=== PATIENT | male | born 1975 | race American Indian/Alaskan Native ===

== ENCOUNTER 2017-11-21 17:34 | Emergency (ER) | payer OTHER ==
[2017-11-21] MEDS ORDERED: MOTRIN PO ONE (20:16)
--- NOTE | 2017-11-21 20:16 | Emergency Department Report ---
ED ENT HPI - General Chief complaint: Earache Stated complaint: (L) EAR ACHE Time Seen by Provider: 11/21/17 19:23 Source: patient Mode of arrival: Ambulatory Limitations: No Limitations - History of Present Illness Initial comments: This is a 42-year-old male here complaining of left ear pain for a week. He denies any drainage or any injury to his left ear. He also is complaining of left lower second molar toothache. He does not have a dentist nor does he have a primary care doctor. He has a history of arm and knee surgery. Denies any nasal congestion or runny nose. Denies any fever or chills. Denies any chest pain, shortness of breath or sore throat. Pain is 8 out of 10 to his teeth and his left ear. [id number] pain medication he reports did not help. No alleviating or exacerbating factors. MD complaint: tooth pain, ear pain Onset/Timin -: week(s) Location: L ear, tooth # 1 - Second molar Severity: severe Severity scale (0 -10): 8 Quality: aching Consistency: constant Improves with: none Worsens with: none Context- Dental: history of dental caries, poor dental care Context- Ear: other (known) Associated Symptoms: toothache. denies: fever, cough, gum swelling, pain with swallowing, sore throat, tinnitus, hearing loss, discharge from ear, rhinorrhea - Related Data Previous Rx's Medication Instructions Recorded Last Taken Type Acetaminophen/Codeine [Tylenol 1 tab PO Q6H PRN #14 tab 11/21/17 Unknown Rx /Codeine # 3 tab] Amoxicillin [Amoxicillin TAB] 875 mg PO BID 10 Days #20 tablet 11/21/17 Unknown Rx Ibuprofen [Motrin] 600 mg PO Q8H PRN #12 tablet 11/21/17 Unknown Rx Neomy/Polymyx B/Hc (Otic) Soln 4 drops .ROUTE Q8H 7 Days #1 bottle 11/21/17 Unknown Rx [Cortisporin (Otic) Soln] Allergies Allergy/AdvReac Type Severity Reaction Status Date / Time No Known Allergies Allergy Unverified 11/21/17 17:36 ED Dental HPI - General Chief complaint: Earache Stated complaint: (L) EAR ACHE Time Seen by Provider: 11/21/17 19:23 Source: patient Mode of arrival: Ambulatory Limitations: No Limitations - Related Data Previous Rx's Medication Instructions Recorded Last Taken Type Acetaminophen/Codeine [Tylenol 1 tab PO Q6H PRN #14 tab 11/21/17 Unknown Rx /Codeine # 3 tab] Amoxicillin [Amoxicillin TAB] 875 mg PO BID 10 Days #20 tablet 11/21/17 Unknown Rx Ibuprofen [Motrin] 600 mg PO Q8H PRN #12 tablet 11/21/17 Unknown Rx Neomy/Polymyx B/Hc (Otic) Soln 4 drops .ROUTE Q8H 7 Days #1 bottle 11/21/17 Unknown Rx [Cortisporin (Otic) Soln] Allergies Allergy/AdvReac Type Severity Reaction Status Date / Time No Known Allergies Allergy Unverified 11/21/17 17:36 ED Review of Systems ROS: Stated complaint: (L) EAR ACHE Other details as noted in HPI Constitutional: denies: chills, fever Eyes: denies: eye pain, eye discharge, vision change ENT: ear pain, dental pain. denies: throat pain, epistaxis, congestion Respiratory: denies: cough, shortness of breath, SOB with exertion, SOB at rest , stridor, wheezing Cardiovascular: denies: chest pain, palpitations, edema, syncope Gastrointestinal: denies: nausea, vomiting Musculoskeletal: denies: back pain, joint swelling, arthralgia, myalgia Skin: denies: rash, lesions Neurological: denies: headache, weakness, vertigo ED Past Medical Hx - Past Medical History Previous Medical History?: No - Surgical History Past Surgical History?: Yes Additional Surgical History: knee, arm - Family History Family history: hypertension - Social History Smoking Status: Never Smoker Substance Use Type: None - Medications Home Medications: Home Medications Medication Instructions Recorded Confirmed Last Taken Type Acetaminophen/Codeine [Tylenol 1 tab PO Q6H PRN #14 tab 11/21/17 Unknown Rx /Codeine # 3 tab] Amoxicillin [Amoxicillin TAB] 875 mg PO BID 10 Days #20 tablet 11/21/17 Unknown Rx Ibuprofen [Motrin] 600 mg PO Q8H PRN #12 tablet 11/21/17 Unknown Rx Neomy/Polymyx B/Hc (Otic) Soln 4 drops .ROUTE Q8H 7 Days #1 bottle 11/21/17 Unknown Rx [Cortisporin (Otic) Soln] ED Physical Exam - General Limitations: No Limitations General appearance: alert, in no apparent distress - Head Head exam: Present: atraumatic, normocephalic, normal inspection - Eye Eye exam: Present: normal appearance, PERRL, EOMI Pupils: Present: normal accommodation - ENT ENT exam: Present: normal orophraynx, mucous membranes moist, other (no maxillary or frontal sinus tenderness.). Absent: normal exam, TM's normal bilaterally (bilateral TM congested without erythema), normal external ear exam (right EAC normal exam left EAC red, swollen and left tragus is tender to palpate) - Expanded ENT Exam Expanded Ear exam: Present: normal external inspection TM/Canal exam: Canal Tenderness: Left TM (red and swollen) Teeth exam: Present: dental caries, dental tenderness # (#18), gingival enlargement. Absent: normal inspection, fractured tooth # 1 - Dental Tenderness (tooth #18 with tenderness. No abscess or cellulitic area), Other (positive gingivitis) Throat exam: Positive: normal inspection - Neck Neck exam: Present: normal inspection, full ROM. Absent: tenderness, lymphadenopathy - Respiratory Respiratory exam: Present: normal lung sounds bilaterally. Absent: respiratory distress, chest wall tenderness - Cardiovascular Cardiovascular Exam: Present: regular rate, normal rhythm, normal heart sounds. Absent: systolic murmur, diastolic murmur - Extremities Exam Extremities exam: Present: normal inspection, full ROM, normal capillary refill , other (No cce. + 2 pulses in all extremities, no neurovascular compromise). Absent: tenderness, pedal edema, joint swelling, calf tenderness - Neurological Exam Neurological exam: Present: alert, oriented X3, normal gait - Psychiatric Psychiatric exam: Present: normal affect, normal mood - Skin Skin exam: Present: warm, dry, intact, normal color. Absent: rash ED Course Vital Signs 11/21/17 17:36 Temperature 98.7 F Pulse Rate 85 Respiratory 16 Rate Blood Pressure 148/88 O2 Sat by Pulse 98 Oximetry - Reevaluation(s) Reevaluation #1: 11/21/17 20:31 Given Motrin 800 mg emergency room for toothache and left ear pain with positive relief. ED Medical Decision Making - Medical Decision Making This is a 42-year-old male here report that he is having left earache and left lower toothache. Patient does not have a dentist and he's been taking pain medication which he said that is not helping and is here for treatment. I examined patient and physical exam found patient with left tooth #18 with caries and tenderness around tooth. No abscess or cellulitis. Noted. No fracture noticed. He should also with gingivitis oral exam is otherwise normal. Patient also found to have bilateral TM with congestion and left TM red , swollen with left tragus tender to palpate. Patient was given Motrin and emergency room which relieved his pain. I discussed the patient is diagnosis and treatment plan and I discussed that he needs to follow-up with primary care physician regarding is left ear infection and dentist regarding this toothache, gingivitis and dental caries and he voiced understanding. A/P Gingivitis-antibiotic and referral to dentist Dental caries-patient will be placed on amoxicillin and referred to dentist Toothache #18-Motrin 800 mg given oral relief of pain and will be placed on Motrin and Tylenol 3 Otitis externa left ear-pain has resolved. Corticosporin optic solution prescription. referred to primary care at [facility] as he does not have a primary care doctor Educated on oral care, medication, follow-up visit, diagnosis and he voiced understanding. Pt Discharged home in stable condition. His vital signs are stable and he is afebrile. Pain is controlled. Patient to follow-up at [facility] and [facility] dental clinic in 2-3 days and he voiced understanding. Patient discharged home with prescription for amoxicillin, Cortisporin Otic solution, ibuprofen and Tylenol 3. 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 ED Disposition Clinical Impression: Gingivitis, Dental caries, Tooth ache, Otalgia, left ear Otitis externa Qualifiers: Otitis externa type: unspecified type Chronicity: acute Laterality: left Qualified Code(s): H60.502 - Unspecified acute noninfective otitis externa, left ear Disposition: DC-01 TO HOME OR SELFCARE Is pt being admited?: No Does the pt Need Aspirin: No Condition: Stable Instructions: Otitis Externa (ED), Earache (ED), Dental Caries (ED), Toothache (ED), Gingivitis (ED) Additional Instructions: Please follow up with dentist and primary care doctor as discussed. Take Motrin for mild to moderate pain and please take this medication with food. Take Tylenol No. 3 for severe pain and please do not drive or operate heavy machinery while taking this medication. Take amoxicillin as prescribed. Please see floss twice daily Gargle Listerine mouthwash twice daily Prescriptions: Acetaminophen/Codeine [Tylenol /Codeine # 3 tab] 1 tab PO Q6H PRN #14 tab PRN Reason: moderate to severe pain Amoxicillin [Amoxicillin TAB] 875 mg PO BID 10 Days #20 tablet Ibuprofen [Motrin] 600 mg PO Q8H PRN #12 tablet PRN Reason: Pain Neomy/Polymyx B/Hc (Otic) Soln [Cortisporin (Otic) Soln] 4 drops .ROUTE Q8H 7 Days #1 bottle Referrals: [facility] [Outside] - 3-5 Days [facility] [Outside] - 3-5 Days Forms: Work/School Release Form(ED)
[2017-11-21 20:58] VITALS: BP 139/72
== END 2017-11-21 20:45 | disposition home or self-care (01) ==
LOC: ED 17:34
DX: K02.9 Dental caries, unspecified (principal); H60.502 Unspecified acute noninfective otitis externa, left ear; K05.00 Acute gingivitis, plaque induced
CPT/HCPCS: 99282

== ENCOUNTER 2019-12-31 20:41 | Inpatient (IN) | payer OTHER ==
[2019-12-31] MEDS ORDERED: ASPIRIN 325 MG TAB PO ONE (21:04)
--- NOTE | 2019-12-31 21:21 | Emergency Department Report ---
ED Chest Pain HPI - General Chief Complaint: Chest Pain Stated Complaint: CHEST PAIN Time Seen by Provider: 12/31/19 21:21 Source: patient, RN notes reviewed Mode of arrival: Ambulatory Limitations: No Limitations - History of Present Illness Initial Comments: The patient was evaluated in the emergency department for symptoms described in the history of present illness. He/she was evaluated in the context of the global COVID-19 pandemic, which necessitated consideration that the patient might be at risk for infection with the virus that causes COVID-19. Institutional protocols and algorithms that pertain to the evaluation of patients at risk for COVID-19 are in a state of rapid change based on information released by regulatory bodies including the CDC and federal and state organizations. These policies and algorithms were followed during the patient's care in the emergency department. Please note that these policies, procedures and recommendations changed on a rapid basis. Patient is a pleasant, calm and cooperative 44-year-old gentleman who is not known to myself previously. He does not have a primary care doctor and he denies chronic medical conditions. He presents to the ER with a complaint of 3 days of nausea and vomiting, associated nonradiating chest pain, mild shortness of breath, without diaphoresis. Nausea and vomiting started first. 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 He has some muscle cramps, and dark-colored urine. He denies DVT, pulmonary embolism risk factors. Nausea and vomiting intermittent. Chest pain is central and left-sided, and intermittent. Patient is thirsty and asking to drink at this time. Nausea and vomiting do not have exacerbating or relieving factors. Chest pain does not have exacerbating or relieving factors. MD Complaint: chest pain -: Gradual, days(s) Onset: during rest, during exertion Pain Location: substernal, left chest, right chest Pain Radiation: none Quality: aching Consistency: intermittent Improves With: other Worsens With: other re: nausea, vomting, dyspnea Aspirin use within the Past 7 Days: (1) Yes - Related Data On Oral Contraceptives: No Previous Rx's Medication Instructions Recorded Last Taken Type Acetaminophen/Codeine [Tylenol 1 tab PO Q6H PRN #14 tab 11/21/17 Unknown Rx /Codeine # 3 tab] Amoxicillin [Amoxicillin TAB] 875 mg PO BID 10 Days #20 tablet 11/21/17 Unknown Rx Ibuprofen [Motrin] 600 mg PO Q8H PRN #12 tablet 11/21/17 Unknown Rx Neomy/Polymyx B/Hc (Otic) Soln 4 drops .ROUTE Q8H 7 Days #1 bottle 11/21/17 Unknown Rx [Cortisporin (Otic) Soln] Allergies Allergy/AdvReac Type Severity Reaction Status Date / Time No Known Allergies Allergy Verified 12/31/19 21:21 Heart Score - HEART Score History: Moderately suspicious EKG: Non-specific Age: 45-65 Risk factors: No known risk factors Troponin: < normal limit HEART Score: 3 - Critical Actions Critical Actions: 0-3 pts:0.9-1.7%risk of adverse cardiac event.Candidate for discharge ED Review of Systems ROS: Stated complaint: CHEST PAIN Other details as noted in HPI Constitutional: malaise, weakness. denies: fever Eyes: denies: eye discharge ENT: denies: epistaxis Respiratory: shortness of breath. denies: cough Cardiovascular: chest pain Gastrointestinal: nausea, vomiting. denies: constipation, hematemesis, melena, hematochezia Genitourinary: other. denies: urgency, dysuria, testicular pain Musculoskeletal: arthralgia, myalgia Neurological: weakness Psychiatric: anxiety Hematological/Lymphatic: denies: easy bleeding ED Past Medical Hx - Past Medical History Previous Medical History?: No - Surgical History Past Surgical History?: Yes Additional Surgical History: knee, arm - Social History Smoking Status: Never Smoker Substance Use Type: None - Medications Home Medications: Home Medications Medication Instructions Recorded Confirmed Last Taken Type Acetaminophen/Codeine [Tylenol 1 tab PO Q6H PRN #14 tab 11/21/17 Unknown Rx /Codeine # 3 tab] Amoxicillin [Amoxicillin TAB] 875 mg PO BID 10 Days #20 tablet 11/21/17 Unknown Rx Ibuprofen [Motrin] 600 mg PO Q8H PRN #12 tablet 11/21/17 Unknown Rx Neomy/Polymyx B/Hc (Otic) Soln 4 drops .ROUTE Q8H 7 Days #1 bottle 11/21/17 Unknown Rx [Cortisporin (Otic) Soln] ED Physical Exam - General Limitations: No Limitations General appearance: alert, anxious - Head Head exam: Present: atraumatic, normocephalic - Eye Eye exam: Present: normal appearance, EOMI. Absent: nystagmus - ENT ENT exam: Present: normal exam, normal orophraynx, mucous membranes moist, normal external ear exam - Neck Neck exam: Present: normal inspection, full ROM. Absent: tenderness, meningismus - Respiratory Respiratory exam: Present: normal lung sounds bilaterally. Absent: respiratory distress, rales, rhonchi, stridor - Cardiovascular Cardiovascular Exam: Present: regular rate, normal rhythm, normal heart sounds. Absent: bradycardia, tachycardia, irregular rhythm, systolic murmur, diastolic murmur, rubs, gallop - GI/Abdominal GI/Abdominal exam: Present: soft. Absent: distended, tenderness, guarding, rebound, rigid, pulsatile mass - Rectal Rectal exam: Present: deferred - Extremities Exam Extremities exam: Present: normal inspection, full ROM, other (2+ pulses noted in the bilateral upper and lower extremities. There is no palpable cord. negative Homans sign. Muscular compartments are soft. The pelvis is stable.). Absent: pedal edema, calf tenderness - Back Exam Back exam: Present: normal inspection, full ROM. Absent: tenderness, CVA tenderness (R), CVA tenderness (L), paraspinal tenderness, vertebral tenderness - Neurological Exam Neurological exam: Present: alert, normal gait, other (No facial droop. Tongue midline. Extraocular movements intact bilaterally. Facial sensation intact to light touch in V1, V2, V3 distribution bilaterally. 5 and a 5 strength in 4 extremities. Sensation intact to light touch in 4 extremities.). Absent: motor sensory deficit - Psychiatric Psychiatric exam: Present: anxious - Skin Skin exam: Present: warm, dry, intact, normal color. Absent: rash ED Course Vital Signs 12/31/19 12/31/19 20:46 21:28 Temperature 98.1 F Pulse Rate 95 H Respiratory 18 16 Rate Blood Pressure 149/97 O2 Sat by Pulse 96 Oximetry - Reevaluation(s) Reevaluation #1: 12/31/19 22:21 Suspect that direct hyperbilirubinemia, hypomagnesemia, transaminitis all secondary to rhabdomyolysis. CK level pending. Reevaluation #2: 12/31/19 22:22 Creatinine kinase almost 15,000. I suspect that the patient developed rhabdomyolysis, which in turn caused renal insufficiency, which in turn caused nausea and vomiting, which in turn led to presumed erosive gastritis/esophagitis, leading to patient's chest pain. PORFIRIO score - Porfirio Score Age > 65: (0) No Aspirin use within the Past 7 Days: (1) Yes 3 or more CAD Risk Factors: (0) No 2 or more Angina events in past 24 hrs: (0) No Known CAD with more than 50% Stenosis: (0) No Elevated Cardiac Markers: (0) No ST Deviation Greater than 0.5mm: (0) No PORFIRIO Score: 1 ED Medical Decision Making - Lab Data Result diagrams: 12/31/19 21:07 12/31/19 21:07 Vital Signs 12/31/19 12/31/19 20:46 21:28 Temperature 98.1 F Pulse Rate 95 H Respiratory 18 16 Rate Blood Pressure 149/97 O2 Sat by Pulse 96 Oximetry Lab Results 12/31/19 12/31/19 Range/Units 21:07 21:07 WBC 14.2 H (4.5-11.0) K/mm3 RBC 5.91 H (3.65-5.03) M/mm3 Hgb 15.9 H (11.8-15.2) gm/dl Hct 48.1 H (35.5-45.6) % MCV 81 L (84-94) fl MCH 27 L (28-32) pg MCHC 33 (32-34) % RDW 14.8 (13.2-15.2) % Plt Count 274 (140-440) K/mm3 Lymph % (Auto) 12.9 L (13.4-35.0) % [place] % (Auto) 4.1 (0.0-7.3) % Eos % (Auto) 0.0 (0.0-4.3) % Baso % (Auto) 0.5 (0.0-1.8) % Lymph # 1.8 (1.2-5.4) K/mm3 [place] # 0.6 (0.0-0.8) K/mm3 Eos # 0.0 (0.0-0.4) K/mm3 Baso # 0.1 (0.0-0.1) K/mm3 Seg Neutrophils % 82.5 H (40.0-70.0) % Seg Neutrophils # 11.7 H (1.8-7.7) K/mm3 Sodium 126 L (137-145) mmol/L Potassium 4.7 (3.6-5.0) mmol/L Chloride 83.3 L (98-107) mmol/L Carbon Dioxide 19 L (22-30) mmol/L Anion Gap 28 mmol/L BUN 63 H (9-20) mg/dL Creatinine 3.4 H (0.8-1.3) mg/dL Estimated GFR 24 ml/min BUN/Creatinine Ratio 19 % Glucose 117 H (75-100) mg/dL Calcium 10.0 (8.4-10.2) mg/dL Troponin T < 0.010 (0.00-0.029) ng/mL - EKG Data -: EKG Interpreted by Nv EKG shows normal: sinus rhythm Rate: normal - EKG Data When compared to previous EKG there are: previous EKG unavailable 12/31/19 22:14 Sinus rhythm, 83 bpm, normal axis, intervals within normal limits, high left ventricular voltage, hyperacute T waves, abnormal EKG, not a STEMI. - Radiology Data Radiology results: report reviewed, image reviewed Print Report Referring Physician: EDVIN KAUR Patient Name: MARS LU Date of : 1975 Sex: Male Report Date: 2019-12-31 Report Status: [place] [address] XRay Report Signed Patient: MARS LU MR#: [id number] : 1975 Acct:[id number] Age/Sex: 44 / M ADM Date: 12/31/19 Loc: ED Attending Dr: Ordering Physician: EDVIN KAUR MD Date of Service: 12/31/19 Procedure(s): XR chest routine 2V Accession Number(s): [id number] cc: EDVIN KAUR MD Fluoro Time In Minutes: CHEST 2 VIEWS INDICATION / CLINICAL INFORMATION: MAIN. Chest pain COMPARISON: None available. FINDINGS: SUPPORT DEVICES: None. HEART / MEDIASTINUM: No significant abnormality. LUNGS / PLEURA: No significant pulmonary or pleural abnormality. No pneumothorax. ADDITIONAL FINDINGS: No significant additional findings. IMPRESSION: 1. No acute findings. Signer Name: Duane Winters MD Signed: 12/31/2019 9:40 PM Workstation Name: [id number] Transcribed By: Dictated By: DUANE WINTERS Electronically Authenticated By: DUANE WINTERS Signed Date/Time: 12/31/192139 DD/ 38 TD/TT: - Medical Decision Making Differential diagnosis, including but not limited to: Azotemia, uremia, renal insufficiency, rhabdomyolysis, GERD, gastritis, hiatal hernia, pneumonia, coronary artery disease Assessment and plan: 44-year-old gentleman, who is not currently tachycardic, tachypneic or hypoxic, who endorses no DVT or pulmonary embolism risk factors, low risk by Wells criteria, who is PERC negative, 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 Found to have transaminitis, hypomagnesemia, leukocytosis which is likely a stress reaction, soft benign abdomen, renal insufficiency, creatinine kinase pending at this time. Highly suspicious for rhabdomyolysis. IV fluids ordered, supportive care ordered. He is also found to have hyponatremia, likely hypovolemic hyponatremia, metabolic acidosis likely sec ondary to nausea, vomiting, dehydration, and renal insufficiency. We have recommended admission to the medical service for supportive care and the aforementioned findings. Discussed this plan of care with the patient who verbalized understanding, and is amenable to this plan of care. Hospital physician, Dr. Tala Carrera to admit ck pending at this time Critical care attestation.: If time is entered above; I have spent that time in minutes in the direct care of this critically ill patient, excluding procedure time. ED Disposition Clinical Impression: TORIE (acute kidney injury), Hyponatremia, Metabolic acidosis, Chest pain, H ypermagnesemia, Transaminitis, Rhabdomyolysis Disposition: OP ADMIT IP TO THIS HOSP Is pt being admited?: Yes Does the pt Need Aspirin: No Condition: Serious Instructions: Chest Pain (ED) Referrals: PRIMARY CARE,MD [Primary Care Provider] - 3-5 Days
[2019-12-31] MEDS ORDERED: SUCRALFATE 1 GM TAB PO ONE (21:33)
[2019-12-31] MEDS ORDERED: FAMOTIDINE 20 MG TAB PO ONE (21:33)
[2019-12-31] MEDS ORDERED: METOCLOPRAMIDE 10 MG TAB PO ONE (21:33)
[2019-12-31 21:36] LABS: Basophils # (Auto) 0.1 K/mm3 (0.0-0.1); Basophils % (Auto) 0.5 % (0.0-1.8); Hematocrit 48.1 % (35.5-45.6); Hemoglobin 15.9 gm/dl (11.8-15.2); Lymphocytes # (Auto) 1.8 K/mm3 (1.2-5.4); Lymphocytes % (Auto) 12.9 % (13.4-35.0); Mean Corpuscular HGB Conc 33 % (32-34); Mean Corpuscular Volume 81 fl (84-94); Monocytes # (Auto) 0.6 K/mm3 (0.0-0.8); Monocytes % (Auto) 4.1 % (0.0-7.3); Platelet Count 274 K/mm3 (140-440); Red Blood Count 5.91 M/mm3 (3.65-5.03); Red Cell Distribution Width 14.8 % (13.2-15.2)
--- NOTE | 2019-12-31 21:45 | XRay Report ---
CHEST 2 VIEWS INDICATION / CLINICAL INFORMATION: MAIN. Chest pain COMPARISON: None available. FINDINGS: SUPPORT DEVICES: None. HEART / MEDIASTINUM: No significant abnormality. LUNGS / PLEURA: No significant pulmonary or pleural abnormality. No pneumothorax. ADDITIONAL FINDINGS: No significant additional findings. IMPRESSION: 1. No acute findings. Signer Name: Duane Rm MD Signed: 12/31/2019 9:40 PM Workstation Name: [id number]
[2019-12-31 21:54] LABS: BUN/Creatinine Ratio 19; Blood Urea Nitrogen 63 mg/dL (9-20); Hemolysis Index 27
[2019-12-31] MEDS ORDERED: LACTATED RINGERS 1,000 ML IV ONE (21:56)
[2019-12-31 22:04] LABS: Bilirubin,Direct 0.2 mg/dL (0-0.2)
[2019-12-31] MEDS ORDERED: SODIUM BICARB 8.4% 50 MEQ/50 ML SYRINGE IV ONE ×2 (22:21→22:42)
[2019-12-31 22:43] LABS: Osmolality,Urine 573 Mosm/kg
[2019-12-31 22:47] LABS: Bacteria,Urine 1+ /HPF (Negative); Bilirubin,Urine NEG (Negative); Blood,Urine MOD (Negative); Color,Urine Yellow (Yellow); Mucus,Urine FEW /HPF; Urobilinogen,Urine < 2.0 mg/dL (<2.0)
[2019-12-31 22:52] LABS: Amphetamine Screen,Urine PRESUMPTIVE POSITIVE; Benzodiazepines Screen,Urine PRESUMPTIVE NEGATIVE; Cannabinoid Screen,Urine PRESUMPTIVE POSITIVE; Cocaine Screen,Urine PRESUMPTIVE NEGATIVE; Methadone Screen,Urine PRESUMPTIVE NEGATIVE; Opiate Screen,Urine PRESUMPTIVE NEGATIVE
[2019-12-31] MEDS ORDERED: ONDANSETRON 4 MG/2 ML INJ IV PRN (22:54)
[2019-12-31] MEDS ORDERED: ACETAMINOPHEN 325 MG TAB PO PRN (22:54)
[2019-12-31] MEDS ORDERED: NITROGLYCERIN 0.4 MG TAB SUBL SL PRN (23:04)
[2019-12-31] MEDS: HEPARIN 5,000 UNIT/1 ML VIAL SUB-Q SCH (23:04)
[2019-12-31] MEDS ORDERED: MORPHINE 2 MG/1 ML INJ IV PRN (23:05)
[2019-12-31 23:27] LABS: Creatinine,Urine 351.4 mg/dL (0.1-20.0)
[2020-01-01] MEDS: SODIUM BICARBONATE 150 MEQ in DEXTROSE 5% IN WATER 1,000 ML IV SCH ×2 (00:45→15:05)
[2020-01-01 02:50] LABS: Creatine Kinase MB 23.2 ng/mL (0.0-4.0)
--- NOTE | 2020-01-01 06:20 | History and Physical Report ---
History of Present Illness Date of examination: 12/31/19 Date of admission: 12/31/19 22:18 Chief complaint: Nausea and Vomiting and Chest Pain History of present illness: 44 year old male who presented with nausea and vomiting after working in a hot sun. Patient also complained of non radiating intermittent retrosternal chest pain , mailase , bodyache but no fever, chills or dizziness and has been drinking lots of water and noticed dark colored urine Past History Past Medical History: diabetes, DVT, hypertension, renal failure, other Past Surgical History: No surgical history Social history: smoking, other (USES DRUGS LIKE MARIJUANA, AMPHETAMIN) Family history: no significant family history Medications and Allergies Allergies Allergy/AdvReac Type Severity Reaction Status Date / Time No Known Allergies Allergy Verified 12/31/19 21:21 Home Medications Medication Instructions Recorded Confirmed Last Taken Type No Known Home Medications [No 12/31/19 12/31/19 Unknown History Reported Home Medications] Active Meds: Active Medications Acetaminophen (Tylenol) 650 mg PO Q4H PRN PRN Reason: Fever >101 Aspirin (Aspirin) 325 mg PO QDAY [facility] Heparin Sodium (Porcine) (Heparin) 5,000 unit SUB-Q Q12HR [facility] Last Admin: 12/31/19 23:04 Dose: 5,000 unit Documented by: Sodium Bicarbonate 150 meq/ (Dextrose) 1,150 mls @ 75 mls/hr IV DIRECT [facility] Last Admin: 01/01/20 00:45 Dose: 75 mls/hr Documented by: Morphine Sulfate (Morphine) 2 mg IV Q3H PRN PRN Reason: Pain, Moderate (4-6) Nitroglycerin (Nitrostat) 0.4 mg SL .Q5MIN PRN PRN Reason: Chest Pain Ondansetron HCl (Zofran) 4 mg IV Q8H PRN PRN Reason: Nausea And Vomiting Review of Systems Constitutional: weakness, malaise, no fever, no chills, no sweats Eyes: bilateral: other (NO BILATERAL EYE SYMPTOM) Cardiovascular: chest pain, no lightheadedness, no high blood pressure Respiratory: no cough, no hemoptysis, no shortness of breath, no dyspnea on exertion, no congestion Gastrointestinal: nausea, vomiting, no abdominal pain, no diarrhea, no constipation, no change in bowel habits, no hematemesis, no hematochezia, no jaundice Genitourinary Male: other (DARK COLORED URINE), no dysuria, no hematuria, no flank pain, no discharge, no urinary frequency, no urinary hesitancy, no noc turia, no erectile dysfunction Rectal: no pain Musculoskeletal: no neck stiffness, no neck pain, no low back pain, no leg numbness/tingling Integumentary: no rash, no pruritis, no redness, no sores, no jaundice, no darkening of skin, no depigmentation, no acne, no brittle nails, no striae, no hirsutism Neurological: no head injury, no paralysis, no weakness, no parathesias, no numbness, no tingling, no seizures, no syncope, no tremors, no headaches, no migraines, no convulsions, no aphasia, no change in speech, no change in mentation, no confusion Psychiatric: no memory loss, no sleep disturbances, no insomnia, no hypersomnia, no change in appetite, no change in libido, no depression, no hopelessness, no anhedonia, no difficulties concentrating, no confusion Endocrine: polydipsia, no cold intolerance, no heat intolerance, no polyuria, no nocturia, no flushing Hematologic/Lymphatic: no easy bruising, no easy bleeding, no lymphadenopathy, no lymphedema Allergic/Immunologic: no persistent infections, no anaphylaxis Exam - Constitutional Vitals: Temp Pulse Resp BP Pulse Ox 98.4 F 72 18 118/70 97 01/01/20 05:14 01/01/20 05:14 01/01/20 05:14 01/01/20 05:14 01/01/20 05:14 General appearance: Present: mild distress - EENT Eyes: Present: PERRL, EOM intact ENT: hearing intact, clear oral mucosa - Neck Neck: Present: supple, normal ROM. Absent: carotid bruits - Respiratory Respiratory effort: normal - Cardiovascular Rhythm: regular Heart Sounds: Present: S1 & S2. Absent: gallop, systolic murmur, diastolic murmur - Extremities Extremities: no ischemia, No edema Peripheral Pulses: within normal limits - Abdominal General gastrointestinal: Present: soft, non-tender, non-distended. Absent: tender, distended, hepatomegaly, splenomegaly Male genitourinary: Present: deferred - Rectal Rectal Exam: deferred - Integumentary Integumentary: Present: clear, warm, dry. Absent: jaundice, rash - Musculoskeletal Musculoskeletal: strength equal bilaterally - Psychiatric Psychiatric: appropriate mood/affect HEART Score - HEART Score EKG: Non-specific Age: 45-65 Risk factors: No known risk factors Troponin: Troponin T < 0.010 ng/mL (0.00-0.029) 01/01/20 02:04 Troponin: < normal limit - Critical Actions Critical Actions: 0-3 pts:0.9-1.7%risk of adverse cardiac event.Candidate for discharge Results - Labs CBC & Chem 7: 12/31/19 21:07 12/31/19 21:07 Labs: Laboratory Last Values WBC 14.2 K/mm3 (4.5-11.0) H 12/31/19 21:07 RBC 5.91 M/mm3 (3.65-5.03) H 12/31/19 21:07 Hgb 15.9 gm/dl (11.8-15.2) H 12/31/19 21:07 Hct 48.1 % (35.5-45.6) H 12/31/19 21:07 MCV 81 fl (84-94) L 12/31/19 21:07 MCH 27 pg (28-32) L 12/31/19 21:07 MCHC 33 % (32-34) 12/31/19 21:07 RDW 14.8 % (13.2-15.2) 12/31/19 21:07 Plt Count 274 K/mm3 (140-440) 12/31/19 21:07 Lymph % (Auto) 12.9 % (13.4-35.0) L 12/31/19 21:07 [place] % (Auto) 4.1 % (0.0-7.3) 12/31/19 21:07 Eos % (Auto) 0.0 % (0.0-4.3) 12/31/19 21:07 Baso % (Auto) 0.5 % (0.0-1.8) 12/31/19 21:07 Lymph # 1.8 K/mm3 (1.2-5.4) 12/31/19 21:07 [place] # 0.6 K/mm3 (0.0-0.8) 12/31/19 21:07 Eos # 0.0 K/mm3 (0.0-0.4) 12/31/19 21:07 Baso # 0.1 K/mm3 (0.0-0.1) 12/31/19 21:07 Seg Neutrophils % 82.5 % (40.0-70.0) H 12/31/19 21:07 Seg Neutrophils # 11.7 K/mm3 (1.8-7.7) H 12/31/19 21:07 Sodium 126 mmol/L (137-145) L 12/31/19 21:07 Potassium 4.7 mmol/L (3.6-5.0) 12/31/19 21:07 Chloride 83.3 mmol/L (98-107) L 12/31/19 21:07 Carbon Dioxide 19 mmol/L (22-30) L 12/31/19 21:07 Anion Gap 28 mmol/L 12/31/19 21:07 BUN 63 mg/dL (9-20) H 12/31/19 21:07 Creatinine 3.4 mg/dL (0.8-1.3) H 12/31/19 21:07 Estimated GFR 24 ml/min 12/31/19 21:07 BUN/Creatinine Ratio 19 % 12/31/19 21:07 Glucose 117 mg/dL (75-100) H 12/31/19 21:07 Uric Acid 11.1 mg/dL (3.5-7.6) H 12/31/19 22:30 Calcium 10.0 mg/dL (8.4-10.2) 12/31/19 21:07 Magnesium 3.20 mg/dL (1.7-2.3) H 12/31/19 21:07 Total Bilirubin 1.30 mg/dL (0.1-1.2) H 12/31/19 21:07 Direct Bilirubin 0.2 mg/dL (0-0.2) 12/31/19 21:07 Indirect Bilirubin 1.1 mg/dL 12/31/19 21:07 AST 266 units/L (5-40) H 12/31/19 21:07 ALT 71 units/L (7-56) H 12/31/19 21:07 Alkaline Phosphatase 88 units/L (35-129) 12/31/19 21:07 Total Creatine Kinase 24811 units/L (55-170) H 01/01/20 02:04 CK-MB (CK-2) 23.2 ng/mL (0.0-4.0) H 01/01/20 02:04 CK-MB (CK-2) Rel Index 0.1 (0-4) 01/01/20 02:04 Troponin T < 0.010 ng/mL (0.00-0.029) 01/01/20 02:04 Total Protein 9.7 g/dL (6.3-8.2) H 12/31/19 21:07 Albumin 5.0 g/dL (3.9-5) 12/31/19 21:07 Albumin/Globulin Ratio 1.1 % 12/31/19 21:07 Lipase 19 units/L (13-60) 12/31/19 21:07 TSH 2.720 mlU/mL (0.270-4.200) 12/31/19 22:30 Urine Color Yellow (Yellow) 12/31/19 22:20 Urine Turbidity Slightly-cloudy (Clear) 12/31/19 22:20 Urine pH 5.0 (5.0-7.0) 12/31/19 22:20 Ur Specific [place] 1.021 (1.003-1.030) 12/31/19 22:20 Urine Protein 30 mg/dl mg/dL (Negative) 12/31/19 22:20 Urine Glucose (UA) Neg mg/dL (Negative) 12/31/19 22:20 Urine Ketones Neg mg/dL (Negative) 12/31/19 22:20 Urine Blood Mod (Negative) 12/31/19 22:20 Urine Nitrite Neg (Negative) 12/31/19 22:20 Urine Bilirubin Neg (Negative) 12/31/19 22:20 Urine Urobilinogen < 2.0 mg/dL (<2.0) 12/31/19 22:20 Ur Leukocyte Esterase Neg (Negative) 12/31/19 22:20 Urine WBC (Auto) 7.0 /HPF (0.0-6.0) H 12/31/19 22:20 Urine RBC (Auto) 6.0 /HPF (0.0-6.0) 12/31/19 22:20 U Epithel Cells (Auto) 1.0 /HPF (0-13.0) 12/31/19 22:20 Urine Bacteria (Auto) 1+ /HPF (Negative) 12/31/19 22:20 Urine Mucus Few /HPF 12/31/19 22:20 Urine Osmolality 573 Mosm/kg 12/31/19 22:20 Urine Creatinine 351.4 mg/dL (0.1-20.0) H 12/31/19 22:20 Urine Sodium 10 mmol/L 12/31/19 22:20 Urine Opiates Screen Presumptive negative 12/31/19 22:20 Urine Methadone Screen Presumptive negative 12/31/19 22:20 Ur Barbiturates Screen Presumptive negative 12/31/19 22:20 Ur Phencyclidine Scrn Presumptive negative 12/31/19 22:20 Ur Amphetamines Screen Presumptive positive 12/31/19 22:20 U Benzodiazepines Scrn Presumptive negative 12/31/19 22:20 Urine Cocaine Screen Presumptive negative 12/31/19 22:20 U Marijuana (THC) Screen Presumptive positive 12/31/19 22:20 Drugs of Abuse Note Disclamer 12/31/19 22:20 Ware/IV: Voiding Method Toilet IV Catheter Type [Left Peripheral IV Antecubital] Assessment and Plan - Patient Problems (1) TORIE (acute kidney injury) Current Visit: Yes Status: Acute Plan to address problem: 1. I.V FLUID 2. NEPHROLOGY CONSULT 3. BMP LEVEL (2) Chest pain Current Visit: Yes Status: Acute Plan to address problem: 1. LEXISCAN STRESS TEST 2 NITROGLYCERIN SUBLINGUAL 3. I.V MORPHINE FOR PAIN 4. ASPIRIN PO 6. I.V ZOFRAN FOR NAUSEA AND VOMITING 7. CARDIOLOGY CONSULT (3) Hyponatremia Current Visit: Yes Status: Acute Plan to address problem: 1. I.V NORMAL SALINE 2. SERIAL BMP'S 3. FLUID RESTRICTION TO 1200ML/DAY (4) Rhabdomyolysis Current Visit: Yes Status: Acute Plan to address problem: 1. SERIAL CPK'S 2. I.V BICARBONATE DRIP
--- NOTE | 2020-01-01 08:30 | Progress Note ---
Assessment and Plan - Patient Problems (1) Chest pain Current Visit: Yes Status: Resolved Plan to address problem: -12/31 lexiscan MPI stress test negative for ischemia, EF 48% - 12/31 Echo pending - Serial troponins have been <0.01 - PRN morphine and nitro - aspirin daily - cardiology consulted (2) TORIE (acute kidney injury) Current Visit: Yes Status: Acute Plan to address problem: - Nephrology consult - IVF at this time - Trend Bmp - Avoid nephrotoxic medications - Possibly secondary to vasomotor nephropathy (3) Rhabdomyolysis Current Visit: Yes Status: Acute Qualifiers: Rhabdomyolysis type: non-traumatic Qualified Code(s): M62.82 - Rhabdomyolysis Plan [place] address problem: [place] [address] - IVF - Trend CK - Supportive care (4) Metabolic acidosis Current Visit: Yes Status: Acute Plan to address problem: - IV sodum bicarb gtt - Received NaHCO3 IVP in ED - Trend CO2 (5) Hyponatremia Current Visit: Yes Status: Acute Plan to address problem: - Mild at this time - Trend BMP - On sodium bicarb gtt (6) Hypermagnesemia Current Visit: Yes Status: Acute Plan to address problem: - Admit Mg 3.2 - Trend Mag (7) Transaminitis Current Visit: Yes Status: Acute Plan to address problem: - Admit AST 266, ALT 71, alk phos 88 - Trend LFTs - Possibly secondary to dehydration, rhabdomyolysis (8) DVT prophylaxis Current Visit: Yes Status: Acute Plan to address problem: - SCDs to BLE while in bed - Heparin sub q History Interval history: This is a 44-year-old male with no health history except daily marijuana use and occasional ETOH use who presents to the emergency department with complaints of nausea and vomiting, body aches, malaise and nonradiating intermittent sternal chest pain. Work up in the emergency department revealed acute kidney injury (Cr 3.4), leukocytosis, transaminitis, hypermagnesemia, and rhabdomyolysis. Cardiology and nephrology were consulted. Overnight the patient did have any acute events, no complaints of nausea vomiting or chest pain. He states that he feels much better. Stress test pending. Hospitalist Physical - Constitutional Vitals: Temp Pulse Resp BP Pulse Ox 98.4 F 72 18 118/70 97 01/01/20 05:14 01/01/20 05:14 01/01/20 05:14 01/01/20 05:14 01/01/20 05:14 General appearance: Present: no acute distress - EENT Eyes: Present: PERRL, EOM intact ENT: hearing intact, clear oral mucosa - Neck Neck: Present: supple, normal ROM - Respiratory Respiratory effort: normal Respiratory: bilateral: CTA - Cardiovascular Rhythm: regular Heart Sounds: Present: S1 & S2. Absent: systolic murmur, diastolic murmur - Extremities Extremities: no ischemia, pulses intact, pulses symmetrical, No edema, normal temperature, normal color, Full ROM Peripheral Pulses: within normal limits - Abdominal General gastrointestinal: soft, non-tender, non-distended, normal bowel sounds - Integumentary Integumentary: Present: clear, warm, dry - Psychiatric Psychiatric: appropriate mood/affect, cooperative - Neurologic Neurologic: CNII-XII intact, no focal deficits, moves all extremities - Allied Health Allied health notes reviewed: nursing HEART Score - HEART Score EKG: Non-specific Age: 45-65 Risk factors: No known risk factors Troponin: Troponin T < 0.010 ng/mL (0.00-0.029) 01/01/20 06:54 Troponin: < normal limit - Critical Actions Critical Actions: 0-3 pts:0.9-1.7%risk of adverse cardiac event.Candidate for discharge Results - Labs CBC & Chem 7: 01/01/20 09:08 01/01/20 06:54 Labs: Laboratory Last Values WBC 14.2 K/mm3 (4.5-11.0) H 12/31/19 21:07 RBC 5.91 M/mm3 (3.65-5.03) H 12/31/19 21:07 Hgb 15.9 gm/dl (11.8-15.2) H 12/31/19 21:07 Hct 48.1 % (35.5-45.6) H 12/31/19 21:07 MCV 81 fl (84-94) L 12/31/19 21:07 MCH 27 pg (28-32) L 12/31/19 21:07 MCHC 33 % (32-34) 12/31/19 21:07 RDW 14.8 % (13.2-15.2) 12/31/19 21:07 Plt Count 274 K/mm3 (140-440) 12/31/19 21:07 Lymph % (Auto) 12.9 % (13.4-35.0) L 12/31/19 21:07 [place] % (Auto) 4.1 % (0.0-7.3) 12/31/19 21:07 Eos % (Auto) 0.0 % (0.0-4.3) 12/31/19 21:07 Baso % (Auto) 0.5 % (0.0-1.8) 12/31/19 21:07 Lymph # 1.8 K/mm3 (1.2-5.4) 12/31/19 21:07 [place] # 0.6 K/mm3 (0.0-0.8) 12/31/19 21:07 Eos # 0.0 K/mm3 (0.0-0.4) 12/31/19 21:07 Baso # 0.1 K/mm3 (0.0-0.1) 12/31/19 21:07 Seg Neutrophils % 82.5 % (40.0-70.0) H 12/31/19 21:07 Seg Neutrophils # 11.7 K/mm3 (1.8-7.7) H 12/31/19 21:07 Sodium 126 mmol/L (137-145) L 12/31/19 21:07 Potassium 4.7 mmol/L (3.6-5.0) 12/31/19 21:07 Chloride 83.3 mmol/L (98-107) L 12/31/19 21:07 Carbon Dioxide 19 mmol/L (22-30) L 12/31/19 21:07 Anion Gap 28 mmol/L 12/31/19 21:07 BUN 63 mg/dL (9-20) H 12/31/19 21:07 Creatinine 3.4 mg/dL (0.8-1.3) H 12/31/19 21:07 Estimated GFR 24 ml/min 12/31/19 21:07 BUN/Creatinine Ratio 19 % 12/31/19 21:07 Glucose 117 mg/dL (75-100) H 12/31/19 21:07 Uric Acid 11.1 mg/dL (3.5-7.6) H 12/31/19 22:30 Calcium 10.0 mg/dL (8.4-10.2) 12/31/19 21:07 Magnesium 3.20 mg/dL (1.7-2.3) H 12/31/19 21:07 Total Bilirubin 1.30 mg/dL (0.1-1.2) H 12/31/19 21:07 Direct Bilirubin 0.2 mg/dL (0-0.2) 12/31/19 21:07 Indirect Bilirubin 1.1 mg/dL 12/31/19 21:07 AST 266 units/L (5-40) H 12/31/19 21:07 ALT 71 units/L (7-56) H 12/31/19 21:07 Alkaline Phosphatase 88 units/L (35-129) 12/31/19 21:07 Total Creatine Kinase 51003 units/L (55-170) H 01/01/20 06:54 CK-MB (CK-2) 21.0 ng/mL (0.0-4.0) H 01/01/20 06:54 CK-MB (CK-2) Rel Index 0.1 (0-4) 01/01/20 06:54 Troponin T < 0.010 ng/mL (0.00-0.029) 01/01/20 06:54 Total Protein 9.7 g/dL (6.3-8.2) H 12/31/19 21:07 Albumin 5.0 g/dL (3.9-5) 12/31/19 21:07 Albumin/Globulin Ratio 1.1 % 12/31/19 21:07 Lipase 19 units/L (13-60) 12/31/19 21:07 TSH 2.720 mlU/mL (0.270-4.200) 12/31/19 22:30 Urine Color Yellow (Yellow) 12/31/19 22:20 Urine Turbidity Slightly-cloudy (Clear) 12/31/19 22:20 Urine pH 5.0 (5.0-7.0) 12/31/19 22:20 Ur Specific [place] 1.021 (1.003-1.030) 12/31/19 22:20 Urine Protein 30 mg/dl mg/dL (Negative) 12/31/19 22:20 Urine Glucose (UA) Neg mg/dL (Negative) 12/31/19 22:20 Urine Ketones Neg mg/dL (Negative) 08/30/20 22:20 Urine Blood Mod (Negative) 12/31/19 22:20 Urine Nitrite Neg (Negative) 12/31/19 22:20 Urine Bilirubin Neg (Negative) 12/31/19 22:20 Urine Urobilinogen < 2.0 mg/dL (<2.0) 12/31/19 22:20 Ur Leukocyte Esterase Neg (Negative) 12/31/19 22:20 Urine WBC (Auto) 7.0 /HPF (0.0-6.0) H 12/31/19 22:20 Urine RBC (Auto) 6.0 /HPF (0.0-6.0) 12/31/19 22:20 U Epithel Cells (Auto) 1.0 /HPF (0-13.0) 12/31/19 22:20 Urine Bacteria (Auto) 1+ /HPF (Negative) 12/31/19 22:20 Urine Mucus Few /HPF 12/31/19 22:20 Urine Osmolality 573 Mosm/kg 12/31/19 22:20 Urine Creatinine 351.4 mg/dL (0.1-20.0) H 12/31/19 22:20 Urine Sodium 10 mmol/L 12/31/19 22:20 Urine Opiates Screen Presumptive negative 12/31/19 22:20 Urine Methadone Screen Presumptive negative 12/31/19 22:20 Ur Barbiturates Screen Presumptive negative 12/31/19 22:20 Ur Phencyclidine Scrn Presumptive negative 12/31/19 22:20 Ur Amphetamines Screen Presumptive positive 12/31/19 22:20 U Benzodiazepines Scrn Presumptive negative 12/31/19 22:20 Urine Cocaine Screen Presumptive negative 12/31/19 22:20 U Marijuana (THC) Screen Presumptive positive 12/31/19 22:20 Drugs of Abuse Note Disclamer 12/31/19 22:20 Ware/IV: Voiding Method Toilet IV Catheter Type [Left Peripheral IV Antecubital] Active Medications - Current Medications Current Medications: Generic Name Dose Route Start Last Admin Trade Name Freq PRN Reason Stop Dose Admin Acetaminophen 650 mg 12/31/19 22:54 Tylenol PO Q4H PRN Fever >101 Aspirin 325 mg 01/01/20 10:00 Aspirin PO QDAY [facility] Heparin Sodium (Porcine) 5,000 unit 12/31/19 23:00 12/31/19 23:04 Heparin SUB-Q 5,000 unit Q12HR [facility] Administration Sodium Bicarbonate 150 meq/ 1,150 mls @ 75 mls/hr 12/31/19 23:00 01/01/20 00:45 Dextrose IV 75 mls/hr DIRECT [facility] Administration Morphine Sulfate 2 mg 12/31/19 23:05 Morphine IV Q3H PRN Pain, Moderate (4-6) Nitroglycerin 0.4 mg 12/31/19 23:04 Nitrostat SL .Q5MIN PRN Chest Pain Ondansetron HCl 4 mg 12/31/19 22:54 Zofran IV Q8H PRN Nausea And Vomiting
[2020-01-01 08:31] LABS: Albumin 4.3 g/dL (3.9-5); Calcium 9.1 mg/dL (8.4-10.2)
[2020-01-01] MEDS ORDERED: ASPIRIN 325 MG TAB PO SCH (10:00)
[2020-01-01 10:25] LABS: Hematocrit 42.7 % (35.5-45.6); Hemoglobin 14.4 gm/dl (11.8-15.2); Mean Corpuscular HGB Conc 34 % (32-34); Mean Corpuscular Volume 80 fl (84-94); Platelet Count 223 K/mm3 (140-440); Red Blood Count 5.34 M/mm3 (3.65-5.03); Red Cell Distribution Width 14.6 % (13.2-15.2)
[2020-01-01] MEDS ORDERED: REGADENOSON 0.4 MG/5 ML INJ IV ONE (10:41)
[2020-01-01] MEDS ORDERED: LORazepam 2 MG/ML VIAL ONE (10:41)
[2020-01-01] MEDS ORDERED: LORazepam 2 MG/ML VIAL IV ONE (11:00)
[2020-01-01 12:11] VITALS: BP 132/71
[2020-01-01] MEDS: HEPARIN 5,000 UNIT/1 ML VIAL SUB-Q SCH (13:08)
[2020-01-01] MEDS ORDERED: HYDROCORTISONE 1% CREAM 28.4GM TP SCH (14:00)
--- NOTE | 2020-01-01 14:03 | Consultation ---
History of Present Illness Consult date: 01/01/20 Requesting physician: ROGELIO LIND Consult reason: chest pain History of present illness: The patient is a 44 YO male with no known past medical history. He is previously unknown to our practice. He presented with c/o 3 days of nausea and vomiting, associated nonradiating chest pain, mild shortness of breath, without di aphoresis. Nausea and vomiting started first. 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 He has some muscle cramps, and dark-colored urine. Nausea and vomiting intermittent. Chest pain is central and left-sided, and intermittent. Chest pain does not have exacerbating or relieving factors. Past History Past Medical History: other (as per HPI) Past Surgical History: No surgical history Social history: smoking, other (USES DRUGS LIKE MARIJUANA, AMPHETAMIN) Family history: no significant family history Medications and Allergies Allergies Allergy/AdvReac Type Severity Reaction Status Date / Time No Known Allergies Allergy Verified 12/31/19 21:21 Home Medications Medication Instructions Recorded Confirmed Last Taken Type No Known Home Medications [No 12/31/19 12/31/19 Unknown History Reported Home Medications] Active Meds: Active Medications Acetaminophen (Tylenol) 650 mg PO Q4H PRN PRN Reason: Fever >101 Aspirin (Aspirin) 325 mg PO QDAY [facility] Last Admin: 01/01/20 13:08 Dose: 325 mg Documented by: Heparin Sodium (Porcine) (Heparin) 5,000 unit SUB-Q Q12HR [facility] Last Admin: 01/01/20 13:08 Dose: 5,000 unit Documented by: Hydrocortisone Acetate (Hydrocortisone Cr) 1 applic TP Q8H [facility] Sodium Bicarbonate 150 meq/ (Dextrose) 1,150 mls @ 75 mls/hr IV [facility] Last Admin: 01/01/20 00:45 Dose: 75 mls/hr Documented by: Morphine Sulfate (Morphine) 2 mg IV Q3H PRN PRN Reason: Pain, Moderate (4-6) Nitroglycerin (Nitrostat) 0.4 mg SL .Q5MIN PRN PRN Reason: Chest Pain Ondansetron HCl (Zofran) 4 mg IV Q8H PRN PRN Reason: Nausea And Vomiting Review of Systems Constitutional: no weight loss, no weight gain Ears, nose, mouth and throat: no ear pain, no nose pain, no sinus pressure, no sinus pain Cardiovascular: chest pain, no orthopnea, no palpitations, no rapid/irregular heart beat, no edema, no syncope, no lightheadedness, no shortness of breath, no dyspnea on exertion Respiratory: no cough, no shortness of breath, no dyspnea on exertion, no congestion, no wheezing, no pain on inspiration Gastrointestinal: nausea, vomiting, no abdominal pain, no diarrhea, no c onstipation, no change in bowel habits, no hematemesis Genitourinary Male: no dysuria, no hematuria, no discharge, no urinary frequency, no urinary hesitancy Musculoskeletal: no neck stiffness, no neck pain, no shooting arm pain, no arm numbness/tingling, no low back pain, no shooting leg pain, no leg numbness/tingling Integumentary: no rash, no pruritis, no redness, no sores, no wounds Neurological: no head injury, no paralysis, no weakness, no parathesias, no numbness, no tingling, no seizures, no syncope Psychiatric: no anxiety Endocrine: no cold intolerance, no heat intolerance Hematologic/Lymphatic: no easy bruising, no easy bleeding Allergic/Immunologic: no urticaria Physical Examination Vital Signs Temp Pulse Resp BP Pulse Ox 98.1 F 95 H 18 149/97 96 12/31/19 20:46 12/31/19 20:46 12/31/19 20:46 12/31/19 20:46 12/31/19 20:46 General appearance: no acute distress HEENT: Positive: PERRL, Normocephaly, Mucus Membranes Moist Neck: Positive: neck supple, trachea midline Cardiac: Positive: Reg Rate and Rhythm, S1/S2 Lungs: Positive: Decreased Breath Sounds Neuro: Positive: Grossly Intact Abdomen: Negative: Tender Skin: Negative: Rash Musculoskeletal: No Pain Extremities: Absent: edema Results 01/01/20 09:08 01/01/20 06:54 Cardiac Enzymes 12/31/19 01/01/20 01/01/20 Range/Units 21:07 02:04 06:54 AST 266 H (5-40) units/L CK-MB (CK-2) 23.2 H 21.0 H (0.0-4.0) ng/mL 01/01/20 Range/Units 06:54 AST 255 H (5-40) units/L CK-MB (CK-2) (0.0-4.0) ng/mL CBC 12/31/19 01/01/20 Range/Units 21:07 09:08 WBC 14.2 H 9.9 (4.5-11.0) K/mm3 RBC 5.91 H 5.34 H (3.65-5.03) M/mm3 Hgb 15.9 H 14.4 (11.8-15.2) gm/dl Hct 48.1 H 42.7 (35.5-45.6) % Plt Count 274 223 (140-440) K/mm3 Lymph # 1.8 (1.2-5.4) K/mm3 [place] # 0.6 (0.0-0.8) K/mm3 Eos # 0.0 (0.0-0.4) K/mm3 Baso # 0.1 (0.0-0.1) K/mm3 Comprehensive Metabolic Panel 12/31/19 12/31/19 01/01/20 Range/Units 21:07 21:07 06:54 Sodium 126 L 132 L (137-145) mmol/L Potassium 4.7 3.6 D (3.6-5.0) mmol/L Chloride 83.3 L 86.7 L (98-107) mmol/L Carbon Dioxide 19 L 30 D (22-30) mmol/L BUN 63 H 53 H (9-20) mg/dL Creatinine 3.4 H 2.1 H (0.8-1.3) mg/dL Glucose 117 H 107 H (75-100) mg/dL Calcium 10.0 9.1 (8.4-10.2) mg/dL Direct Bilirubin 0.2 (0-0.2) mg/dL Indirect Bilirubin 1.1 mg/dL AST 266 H 255 H (5-40) units/L ALT 71 H 61 H (7-56) units/L Alkaline Phosphatase 88 72 (35-129) units/L Total Protein 9.7 H 7.9 (6.3-8.2) g/dL Albumin 5.0 4.3 (3.9-5) g/dL - Imaging and Cardiology Echo: pending EKG: report reviewed, image reviewed EKG interpretations - Telemetry EKG Rhythm: Sinus Rhythm - EKG Sinus rhythms and dysrhythmias: sinus rhythm Chamber hypertrophy or enlargement: left ventricular hypertro Repolarization changes or abnormalities: repolarization abn secondary to ventricular hypertrophy Assessment and Plan S/p lexiscan MPI stress test today which was negative for ischemia, EF 48%. Chest pain resolved. Await echo. The patient has been seen in conjunction with Dr. Erica Finnegan who agrees with the assessment and plan of care. - Patient Problems (1) Chest pain Current Visit: Yes Status: Resolved (2) Nausea and vomiting Current Visit: Yes Status: Acute (3) Rhabdomyolysis Current Visit: Yes Status: Acute Qualifiers: Rhabdomyolysis type: non-traumatic Qualified Code(s): M62.82 - Rhabdomyolysis (4) TORIE (acute kidney injury) Current Visit: Yes Status: Acute (5) Transaminitis Current Visit: Yes Status: Acute (6) Hypermagnesemia Current Visit: Yes Status: Acute (7) Hyponatremia Current Visit: Yes Status: Acute
--- NOTE | 2020-01-01 14:21 | Consultation ---
History of Present Illness - Reason for Consult Consult date: 01/01/20 acute renal failure - History of Present Illness The patient is a 44 YO male without any medical history who presented to [facility] ED 12/30 with c/o nausea and vomiting after working in a hot sun. Patient also complain of L sided CP, interittent & non radiating, mailase and bodyache. He denies fever, chills, dizziness, abd pain, muscle cramps, sob, dysuria or hemturia. History positive for dark colored urine. On further eval he was found to have elevated renal indices and CK level. Nephrology was consulted for further evaluation. Past History Past Medical History: other (as per HPI) Past Surgical History: No surgical history Social history: smoking, other (USES DRUGS LIKE MARIJUANA, AMPHETAMIN) Family history: no significant family history Medications and Allergies Allergies Allergy/AdvReac Type Severity Reaction Status Date / Time No Known Allergies Allergy Verified 12/31/19 21:21 Home Medications Medication Instructions Recorded Confirmed Last Taken Type No Known Home Medications [No 12/31/19 12/31/19 Unknown History Reported Home Medications] Active Meds: Active Medications Acetaminophen (Tylenol) 650 mg PO Q4H PRN PRN Reason: Fever >101 Aspirin (Aspirin) 325 mg PO QDAY [facility] Last Admin: 01/01/20 13:08 Dose: 325 mg Documented by: Heparin Sodium (Porcine) (Heparin) 5,000 unit SUB-Q Q12HR [facility] Last Admin: 01/01/20 13:08 Dose: 5,000 unit Documented by: Hydrocortisone Acetate (Hydrocortisone Cr) 1 applic TP Q8H [facility] Sodium Bicarbonate 150 meq/ (Dextrose) 1,150 mls @ 75 mls/hr IV DIRECT [facility] Last Admin: 01/01/20 00:45 Dose: 75 mls/hr Documented by: Morphine Sulfate (Morphine) 2 mg IV Q3H PRN PRN Reason: Pain, Moderate (4-6) Nitroglycerin (Nitrostat) 0.4 mg SL .Q5MIN PRN PRN Reason: Chest Pain Ondansetron HCl (Zofran) 4 mg IV Q8H PRN PRN Reason: Nausea And Vomiting Review of Systems Constitutional: fatigue, weakness, no weight loss, no weight gain, no fever, no chills, no poor appetite Cardiovascular: chest pain, no orthopnea, no edema, no syncope, no lightheadedn ess, no shortness of breath, no high blood pressure, no leg edema Respiratory: no cough, no hemoptysis, no shortness of breath Gastrointestinal: nausea, vomiting, no abdominal pain, no diarrhea, no melena Genitourinary Male: no dysuria, no hematuria, no urinary retention Rectal: no bleeding Musculoskeletal: no muscle weakness, no muscle cramps Integumentary: rash (both elbow area) Neurological: no aphasia, no change in speech, no change in mentation, no confusion Exam - Vital Signs Vital signs: Vital Signs Temp Pulse Resp BP Pulse Ox 98.1 F 95 H 18 149/97 96 12/31/19 20:46 12/31/19 20:46 12/31/19 20:46 12/31/19 20:46 12/31/19 20:46 Results - Lab Results 01/01/20 09:08 01/01/20 15:02 Most recent lab results Calcium 9.1 mg/dL (8.4-10.2) 01/01/20 06:54 Magnesium 2.80 mg/dL (1.7-2.3) H 01/01/20 09:08 Urine Creatinine 351.4 mg/dL (0.1-20.0) H 12/31/19 22:20 Urine Sodium 10 mmol/L 12/31/19 22:20 Assessment and Plan 1. Acute kidney injury: TORIE in the setting of Vasomotor insult 2/2 volume depletion and rhabdomyolysis. UA; low FeNa. Monitor renal function. Renal function is improving. Avoid nephrotoxic agents. Meds dosage based on GFR. 2. FEN: Hyponatremia, improving, monitor. Monitor lytes. 3. Rhabdomyolysis: Continue IV fluids. Monitor CK levels. 4. Chest pain: Cardiology consulted. 5. Elevated Transaminases: Monitor. - General Appearance: General appearance: well-developed, appears stated age, not in distress HEENT: ATNC, BEN, hearing intact, vision intact Neck: Trachea midline Respiratory: Clear to Ascultation Cardiology: regular, S1S2, no murmur Gastrointestinal: normoactive bowel sounds, no tenderness, no distended Integumentary: no obvious rash Neurologic: able to move extremities, conversing, AOX4 Ext: no edema
--- NOTE | 2020-01-01 19:40 | Discharge Summary ---
Providers - Providers Date of Admission: 01/01/20 10:57 Date of discharge: 01/01/20 Attending physician: ZACH ESTRADA 01/01/20 06:00 Consult to Physician [CONS] Routine Comment: Consulting Provider: BEBA HUYNH Physician Instructions: Reason For Exam: TORIE SECONDARY TO PROBABLY RHABDOMYOLYSIS 01/01/20 06:07 Consult to Physician [CONS] Routine Comment: Consulting Provider: CAMILO PAIZ Physician Instructions: Reason For Exam: chest pain Primary care physician: INDUSTRIAL ROOFER Hospitalization Reason for admission: Atypical chest pain/rhabdomyolysis/acute kidney injury Condition: Serious Pertinent studies: Chest x-ray Procedures: Stress test; no ischemia, normal LV function Hospital course: This is a 44-year-old male with no health history except daily marijuana use and occasional ETOH use who presents to the emergency department with complaints of nausea and vomiting, body aches, malaise and nonradiating intermittent sternal chest pain. Work up in the emergency department revealed acute kidney injury (Cr 3.4), leukocytosis, transaminitis, hypermagnesemia, and rhabdomyolysis. Cardiology and nephrology were consulted. Overnight the patient did have any acute events, no complaints of nausea vomiting or chest pain. He states that he feels much better. Stress test was negative, however patient has very high CK. At 14,000, make acute kidney injury Patient has some important job related work and wanted to leave AGAINST MEDICAL ADVICE I discussed with him extensively the risks and consequences of leaving, and patient's CK levels are very high with kidney injury causing kidney failure, and worsening prognosis. Patient verbalized understanding However insisted on leaving and left AMA. Nurse was present when I discussed with the patient over the phone. Final diagnosis; --Chest pain atypical; probably noncardiac. Stress test negative, --chest pain secondary to rhabdomyolysis and myalgia, advised pain medications --Severe rhabdomyolysis --Acute kidney injury; ATN --Acute metabolic acidosis --Transaminitis --Hyponatremia Patient left AMA Disposition: DC-07 LEFT AGAINST MED ADVICE Time spent for discharge: 32 min Core Measure Documentation - Palliative Care Palliative Care/ Comfort Measures: Not Applicable - Core Measures Any of the following diagnoses?: none Exam - Constitutional Vitals: Temp Pulse Resp BP Pulse Ox 98.3 F 89 16 132/71 99 01/01/20 07:46 01/01/20 09:38 01/01/20 09:38 01/01/20 11:54 01/01/20 09:38 General appearance: Present: no acute distress, well-nourished - EENT Eyes: Present: PERRL, EOM intact - Neck Neck: Present: supple, normal ROM - Respiratory Respiratory effort: normal Respiratory: bilateral: diminished, negative: rales, rhonchi, wheezing - Cardiovascular Rhythm: regular Heart Sounds: Present: S1 & S2 - Extremities Extremities: no ischemia, No edema - Abdominal General gastrointestinal: Present: soft, non-tender, non-distended, normal bowel sounds - Integumentary Integumentary: Present: clear, warm - Musculoskeletal Musculoskeletal: strength equal bilaterally - Psychiatric Psychiatric: appropriate mood/affect - Neurologic Neurologic: CNII-XII intact, moves all extremities Plan Additional Instructions: Patient left AGAINST MEDICAL ADVICE/AMA Follow up with: PRIMARY CARE, [Primary Care Provider] - 3-5 Days Forms: AMA Form
--- NOTE | 2020-01-02 10:13 | Treadmill Report ---
NUCLEAR PERFUSION SCAN REFERRING PHYSICIAN: Hospitalist service. PROTOCOL: The patient was assessed in postoperative state, given 10 mCi of technetium 99m at rest. The patient underwent rest imaging. The patient went Lexiscan stress test per standard protocol. At peak stress, the patient was given 26 mCi of technetium 99m. Shortly thereafter, the patient underwent stress imaging. Raw imaging reveals mild GI artifact, no significant motion effect. SPECT imaging examined carefully in horizontal long axis, vertical long axis, short axis views. There is normal mitral uptake of radioisotope in all reported segments. No evidence of significant fixed or reversible perfusion defects suggestive of prior infarction or ischemia. Gated wall motion reveals low normal systolic performance without evidence of transient ischemic dilatation. CONCLUSIONS: 1. Normal myocardial perfusion scan without evidence of active ischemia or prior infarction. 2. Low normal systolic performance without evidence of transient ischemic dilatation or stress-induced segmental wall motion. JOB# [id number] LESLI/HUSSEIN
== END 2020-01-01 19:11 | disposition left against medical advice (07) | DRG 557 ==
LOC: ED 20:41 → 3A 22:18 → 4A 23:09 → OBSVTOIN 01-01 10:57
PROVIDERS: ADMIT Internal Medicine; ATTEND Internal Medicine
DX: M62.82 Rhabdomyolysis (principal); N17.0 Acute kidney failure with tubular necrosis; E87.1 Hypo-osmolality and hyponatremia; E87.2 Acidosis; R74.0 Nonspecific elevation of levels of transaminase and lactic acid dehydrogenase [LDH]; E83.41 Hypermagnesemia; E11.9 Type 2 diabetes mellitus without complications; I10 Essential (primary) hypertension; F17.200 Nicotine dependence, unspecified, uncomplicated; D72.829 Elevated white blood cell count, unspecified; E86.9 Volume depletion, unspecified; R07.89 Other chest pain; Z79.01 Long term (current) use of anticoagulants; Z79.82 Long term (current) use of aspirin; Z86.718 Personal history of other venous thrombosis and embolism
CPT/HCPCS: 36415; 71046; 78452; 80048; 80053; 80076; 80307; 81001; 82550; 82553; 82570; 83690; 83735; 83935; 84295; 84300; 84443; 84484; 84550; 85025; 85027; 87641; 93005; 93017; G0378; A6250; A9502; J1644; J2060; J2785; J7070; J7120

== ENCOUNTER 2021-03-22 12:29 | Emergency (ER) | payer SELFPAY ==
--- NOTE | 2021-03-22 12:38 | Emergency Department Report ---
ED Abdominal Pain HPI - General Chief Complaint: Abdominal Pain Stated Complaint: ABD PAIN WITH N/V PUI?: No Time Seen by Provider: 03/22/21 12:34 Source: patient Mode of arrival: Ambulatory Limitations: No Limitations - History of Present Illness Initial Comments: 45-year-old male who denies any significant past medical history presents to the ER today with complaints of upper abdominal pain. States that symptoms started around 7 or 8 PM last night. Described as an intermittent pain, stabbing in nature but he states that this feels like getting worse. He states that he vomited twice today, emesis was mainly liquid. He also has had diarrhea, about 3 times and he states that is mainly been watery without any blood or mucus. He denies any fever, chills, UTI symptoms, chest pain or shortness of breath. He denies any recent ill contacts or travel or bad food intake. He denies alcohol abuse. He does admit to marijuana use which she states that he did smoke last night. He denies any other illicit drug use. He denies any abdominal surgeries in the past. MD Complaint: abdominal pain -: Last night - Related Data Previous Rx's Medication Instructions Recorded Last Taken Type Famotidine [Pepcid] 20 mg PO BID #60 tablet 03/22/21 Unknown Rx Hyoscyamine Subl [Levsin Sl 0.125 0.125 mg SL Q6HR PRN #20 tab 03/22/21 Unknown Rx TAB] Ondansetron [Zofran Odt] 4 mg PO Q8HR #15 tab.rapdis 03/22/21 Unknown Rx Allergies Allergy/AdvReac Type Severity Reaction Status Date / Time No Known Allergies Allergy Verified 12/31/19 21:21 ED Review of Systems ROS: Stated complaint: ABD PAIN WITH N/V Other details as noted in HPI Comment: All other systems reviewed and negative Constitutional: denies: chills, fever Eyes: denies: eye pain, eye discharge, vision change ENT: denies: ear pain, throat pain, dental pain, hearing loss, epistaxis, congestion Respiratory: denies: cough, shortness of breath, SOB with exertion, SOB at rest, wheezing Cardiovascular: denies: chest pain, palpitations, dyspnea on exertion, paroxysmal nocturnal dyspnea Gastrointestinal: abdominal pain, nausea, vomiting, diarrhea Genitourinary: denies: urgency, dysuria Musculoskeletal: denies: back pain, joint swelling, arthralgia Skin: denies: rash, lesions, change in color, change in hair/nails, pruritus Neurological: denies: headache, weakness, numbness, paresthesias, confusion, abnormal gait, vertigo Psychiatric: denies: anxiety, depression, auditory hallucinations, visual hallucinations, homicidal thoughts, suicidal thoughts Hematological/Lymphatic: denies: easy bleeding, easy bruising, swollen glands ED Past Medical Hx - Past Medical History Previous Medical History?: No - Surgical History Past Surgical History?: No Additional Surgical History: knee, arm - Social History Smoking Status: Never Smoker - Medications Home Medications: Home Medications Medication Instructions Recorded Confirmed Last Taken Type Famotidine [Pepcid] 20 mg PO BID #60 tablet 03/22/21 Unknown Rx Hyoscyamine Subl [Levsin Sl 0.125 0.125 mg SL Q6HR PRN #20 tab 03/22/21 Unknown Rx TAB] Ondansetron [Zofran Odt] 4 mg PO Q8HR #15 tab.rapdis 03/22/21 Unknown Rx ED Physical Exam - General Limitations: No Limitations General appearance: alert, in no apparent distress - Head Head exam: Present: atraumatic, normocephalic, normal inspection - Eye Eye exam: Present: normal appearance, PERRL, EOMI Pupils: Present: normal accommodation - Neck Neck exam: Present: normal inspection, full ROM - Respiratory Respiratory exam: Present: normal lung sounds bilaterally. Absent: respiratory distress, wheezes, rales, rhonchi - Cardiovascular Cardiovascular Exam: Present: regular rate, normal rhythm, normal heart sounds - GI/Abdominal GI/Abdominal exam: Present: soft, tenderness (Mild epigastric tenderness as well as right upper quadrant tenderness). Absent: distended, guarding, rebound - Neurological Exam Neurological exam: Present: alert, oriented X3, CN II-XII intact, normal gait - Psychiatric Psychiatric exam: Present: normal affect, normal mood - Skin Skin exam: Present: intact ED Course Vital Signs 03/22/21 03/22/21 12:32 13:01 Temperature 98.7 F Pulse Rate 71 Respiratory 18 16 Rate Blood Pressure 134/73 O2 Sat by Pulse 99 Oximetry ED Medical Decision Making - Lab Data Result diagrams: 03/22/21 12:59 03/22/21 12:59 - Radiology Data Radiology results: report reviewed Patient: MARS LU MR#: [id number] : 1975 Acct:[id number] Age/Sex: 45 / M ADM Date: 03/22/21 Loc: ED Attending Dr: Ordering Physician: NEGAR KHAN Date of Service: 03/22/21 Procedure(s): US abdomen limited Accession Number(s): [id number] cc: NEGAR GARCIA RUQ ABDOMINAL ULTRASOUND INDICATION: Epigastric/Right UQ pain. COMPARISON: No relevant prior imaging study available. FINDINGS: Pancreas: Poorly demonstrated. Abdominal Aorta: Normal size. IVC: No significant abnormality. Liver: The liver measures 15.4 cm in length. No significant abnormality. Normal hepatopedal blood flow in the main portal vein. Gallbladder: No significant abnormality. Bile ducts: No significant abnormality. Common bile duct measures 4 mm. Right kidney: No significant abnormality visualized.. Free fluid: None. Additional Findings: None. IMPRESSION: 1. No acute abnormality. Signer Name: Memo Reid MD Signed: 03/22/2021 3:59 PM Workstation Name: [id number] Transcribed By: JW Dictated By: Memo Reid MD Electronically Authenticated By: Memo Reid MD Signed Date/Time: 03/22/211558 DD/ 58 TD/TT: - Medical Decision Making 45-year-old male who denies any significant past medical history presents to the ER today with complaints of upper abdominal pain. States that symptoms started around 7 or 8 PM last night. Described as an intermittent pain, stabbing in na ture but he states that this feels like getting worse. He states that he vomited twice today, emesis was mainly liquid. He also has had diarrhea, about 3 times and he states that is mainly been watery without any blood or mucus. He denies any fever, chills, UTI symptoms, chest pain or shortness of breath. He denies any recent ill contacts or travel or bad food intake. He denies alcohol abuse. He does admit to marijuana use which she states that he did smoke last night. He denies any other illicit drug use. He denies any abdominal surgeries in the past. 1626: Patient reports that he feels much better after meds and IV fluids. He is currently resting comfortably, is not in any acute distress and his repeat abdominal exam shows a soft nontender abdomen. He is not toxic appearing and is neurologically intact with a normal gait. His vital signs are stable. Reviewed all lab --CBC unremarkable; CMP showed mild elevation in his BUN and creatinine and mild elevation in his AST and mild elevation to his T bili. When compared to his previous labs, patient has had worsening elevation to his BUN and creatinine as well as his AST and T bili when he was here back in December of 2019 and he was also in rhabdo and admitted. Patient denies alcohol abuse but he states that he does exercise a lot and he also goes to the sauna a lot. He states that he drinks water but he admits probably not enough. Informed patient that with the nausea, vomiting and diarrhea probably related to a stomach virus and this that can also worsen dehydration and so he needs to really increase his water intake. I also recommend that he try not to go to the sauna too frequently. He will be given medication to help with nausea vomiting and his abdominal discomfort if he cont inues. Patient will be given referral information to PCP as well as GI specialist for continued monitoring and further evaluation. Patient expressed understanding for instructions and agree with plan. Patient was stable at time of discharge. Critical care attestation.: If time is entered above; I have spent that time in minutes in the direct care of this critically ill patient, excluding procedure time. ED Disposition Clinical Impression: Dehydration, Upper abdominal pain, Gastroenteritis Disposition: 01 HOME / SELF CARE / HOMELESS Is pt being admited?: No Does the pt Need Aspirin: No Condition: Stable Instructions: Viral Gastroenteritis, Adult, [id number], Dehydration, Adult, [id number] Additional Instructions: Recommend increasing your water intake. Take the levsin and the pepcid as prescribed to help with abdominal cramping. I recommend that you follow-up with GI specialist and also primary care doctor for continued monitoring a few renal functions, and also a liver functions. Return to the ER if your symptoms changes or worsens in any way. Prescriptions: Hyoscyamine Subl [Levsin Sl 0.125 TAB] 0.125 mg SL Q6HR PRN #20 tab PRN Reason: abdominal cramps Famotidine [Pepcid] 20 mg PO BID #60 tablet Ondansetron [Zofran Odt] 4 mg PO Q8HR #15 tab.rapdis Referrals: [facility] [Provider Group] - 3-5 Days [facility] [Provider Group] - 3-5 Days Forms: Work/School Release Form(ED) Time of Disposition: 16:17
[2021-03-22] MEDS ORDERED: SODIUM CHLORIDE 0.9% 1000 ML 1,000 ML IV ONE ×2 (12:39→14:18)
[2021-03-22] MEDS ORDERED: ONDANSETRON 4 MG/2 ML INJ IV ONE (12:39)
[2021-03-22] MEDS ORDERED: MORPHINE 4 MG/1 ML INJ IV ONE (12:40)
[2021-03-22] MEDS ORDERED: FAMOTIDINE 20 MG TAB PO ONE (12:40)
[2021-03-22 13:44] LABS: Basophils % (Auto) 0.4 % (0.0-1.8); Eosinophils # (Auto) 0.1 K/mm3 (0.0-0.4); Eosinophils % (Auto) 1.1 % (0.0-4.3); Hematocrit 42.8 % (35.5-45.6); Hemoglobin 13.7 gm/dl (11.8-15.2); Lymphocytes # (Auto) 1.1 K/mm3 (1.2-5.4); Lymphocytes % (Auto) 13.3 % (13.4-35.0); Mean Corpuscular HGB Conc 32 % (32-34); Mean Corpuscular Volume 81 fl (84-94); Monocytes # (Auto) 0.3 K/mm3 (0.0-0.8); Monocytes % (Auto) 4.3 % (0.0-7.3); Platelet Count 235 K/mm3 (140-440); Red Cell Distribution Width 14.9 % (13.2-15.2)
[2021-03-22 14:08] LABS: Alanine Aminotransferase 34 units/L (7-56); Albumin 4.3 g/dL (3.9-5); BUN/Creatinine Ratio 15; Bilirubin,Direct 0.3 mg/dL (0-0.2); Blood Urea Nitrogen 23 mg/dL (9-20); Calcium 9.1 mg/dL (8.4-10.2); Hemolysis Index 51
--- NOTE | 2021-03-22 16:04 | Ultrasound Report ---
LIMITED RUQ ABDOMINAL ULTRASOUND INDICATION: Epigastric/Right UQ pain. COMPARISON: No relevant prior imaging study available. FINDINGS: Pancreas: Poorly demonstrated. Abdominal Aorta: Normal size. IVC: No significant abnormality. Liver: The liver measures 15.4 cm in length. No significant abnormality. Normal hepatopedal blood fl ow in the main portal vein. Gallbladder: No significant abnormality. Bile ducts: No significant abnormality. Common bile duct measures 4 mm. Right kidney: No significant abnormality visualized.. Free fluid: None. Additional Findings: None. IMPRESSION: 1. No acute abnormality. Signer Name: Memo Reid MD Signed: 03/22/2021 3:59 PM Workstation Name: [id number]
[2021-03-22 16:28] VITALS: BP 133/73
== END 2021-03-22 16:35 | disposition home or self-care (01) ==
LOC: ED 12:29
DX: E86.0 Dehydration (principal); K52.9 Noninfective gastroenteritis and colitis, unspecified; Z79.899 Other long term (current) drug therapy
CPT/HCPCS: 36415; 76705; 80048; 80076; 83690; 85025; 96361; 96374; 96375; 99284; J2270; J2405; J7030; Q0162

== ENCOUNTER 2021-09-21 12:07 | Emergency (ER) | payer SELFPAY ==
[2021-09-21 14:26] LABS: Hematocrit 43.9 % (35.5-45.6); Mean Corpuscular HGB Conc 32 % (32-34); Mean Corpuscular Volume 81 fl (84-94); Platelet Count 250 K/mm3 (140-440); Red Cell Distribution Width 15.3 % (13.2-15.2)
[2021-09-21 14:59] LABS: Calcium 9.2 mg/dL (8.4-10.2)
[2021-09-22] MEDS: SODIUM CHLORIDE 0.9% 1000 ML 1,000 ML IV ONE ×2 (00:01→02:07)
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
--- NOTE | 2021-09-22 00:58 | Cat Scan Report ---
CT HEAD WITHOUT CONTRAST INDICATION: seizure after heat exposure yesterday TECHNIQUE: All CT scans at this location are performed using CT dose reduction for ALARA by means of automated exposure control. COMPARISON: None available. FINDINGS: BRAIN: No hemorrhage or mass effect are seen. No evidence of acute infarction is noted. ORBITS: Normal as visualized. SOFT TISSUES OF HEAD: Normal. CALVARIUM: Normal. VISUALIZED PARANASAL SINUSES AND MASTOID AIR CELLS: Clear. ADDITIONAL FINDINGS: None. IMPRESSION: No acute intracranial abnormality. Signer Name: Tavo Chavarria MD Signed: 09/22/2021 12:53 AM Workstation Name: [id number]
[2021-09-22 01:27] LABS: Bilirubin,Urine NEG (Negative); Blood,Urine NEG (Negative); Color,Urine Yellow (Yellow); Mucus,Urine FEW /HPF; Protein,Urine <15 mg/dL mg/dL (Negative); Urobilinogen,Urine < 2.0 mg/dL (<2.0)
[2021-09-22 01:33] LABS: Amphetamine Screen,Urine Negative; Benzodiazepines Screen,Urine Negative; Cocaine Screen,Urine Negative; Methadone Screen,Urine Negative; Opiate Screen,Urine Negative
[2021-09-22 02:05] LABS: Cannabinoid Screen,Urine Positive
[2021-09-22 02:34] VITALS: BP 120/79
--- NOTE | 2021-09-22 08:58 | Electrocardiograph Report ---
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
== END 2021-09-22 06:32 | disposition home or self-care (01) ==
LOC: ED 12:07
DX: R56.9 Unspecified convulsions (principal); E86.0 Dehydration; N28.9 Disorder of kidney and ureter, unspecified; Z79.899 Other long term (current) drug therapy; F17.200 Nicotine dependence, unspecified, uncomplicated
CPT/HCPCS: 36415; 70450; 80048; 80307; 81001; 82550; 83735; 85027; 93005; 96360; 96361; 99284; J7030

== ENCOUNTER 2021-11-03 13:44 | Emergency (ER) | payer SELFPAY ==
[2021-11-03 13:53] VITALS: BP 136/98
[2021-11-03] MEDS ORDERED: ONDANSETRON 4 MG/2 ML INJ IV ONE (15:26)
[2021-11-03] MEDS ORDERED: SODIUM CHLORIDE 0.9% 1000 ML 1,000 ML IV ONE (15:26)
[2021-11-03] MEDS ORDERED: DICYCLOMINE 20 MG/2 ML INJ IM ONE (15:26)
[2021-11-03] MEDS ORDERED: FAMOTIDINE 20 MG/2 ML INJ IV ONE (15:26)
[2021-11-03 15:53] LABS: Hemoglobin 16.3 gm/dl (11.8-15.2); Mean Corpuscular HGB Conc 33 % (32-34); Mean Corpuscular Volume 80 fl (84-94); Platelet Count 333 K/mm3 (140-440); Red Blood Count 6.22 M/mm3 (3.65-5.03); Red Cell Distribution Width 15.1 % (13.2-15.2)
[2021-11-03 16:51] LABS: Albumin 5.6 g/dL (3.9-5); Calcium 10.1 mg/dL (8.4-10.2)
[2021-11-03] MEDS ORDERED: POTASSIUM CHLORIDE ER 20 MEQ TAB PO ONE (16:57)
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
== END 2021-11-03 18:01 | disposition home or self-care (01) ==
LOC: ED 13:44
DX: K52.9 Noninfective gastroenteritis and colitis, unspecified (principal); R94.8 Abnormal results of function studies of other organs and systems; F17.200 Nicotine dependence, unspecified, uncomplicated
CPT/HCPCS: 36415; 80053; 85027; 96361; 96372; 96374; 96375; 99284; J0500; J2405; J3490; J7030